=== PATIENT | female | born 1975 | race Caucasian/White ===

== ENCOUNTER 2023-08-09 06:31 | Day surgery (SDC) | payer MEDICAID, SELFPAY ==
[2023-08-04 12:35] VITALS: BMI 42.8
[2023-08-09] VITALS (7 sets, daily range): BP systolic 107–155; BP diastolic 57–79; PULSE 68–83; RESP 10–18; TEMP 36.7–36.8; O2SAT 92–97
--- NOTE | 2023-08-09 08:54 | HO.ANESPROP2 ---
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 If so, by whom?: No Are you DNR?: No Advance Directives: No Advance Directives Information Provided: Yes Advance Directives on File: No Recently lost weight without trying: No Nutrition Risks: No Nutritional Risk Patient : No FDLMP: 07/14/2023 : No Poor oral hygiene: No Meds Allergies Allergy/AdvReac Type Severity Reaction Status Date / Time doxycycline Allergy Severe Anaphylaxis Verified 08/09/23 07:03 gabapentin AdvReac Severe Nightmares Verified 08/09/23 07:03 Active Medications: Current Medications Lactated Ringer's (Lr) 1,000 mls @ 80 mls/hr IVCONT .[id number] [facility] Last Admin: 08/09/23 08:17 Dose: 80 mls/hr Home Medications Medication Instructions Recorded Confirmed Last Taken Type albuterol sulfate 90 mcg/actuation 2 puff inhalation Q4-6H PRN 08/04/23 08/04/23 Unknown History aerosol inhaler (ProAir HFA) Shortness Of Breath Or Wheezing lisinopril 20 mg tablet 20 mg PO DAILY 08/04/23 08/04/23 08/09/23 History methadone 5 mg/5 mL oral solution 29 mg PO DAILY 08/04/23 08/04/23 08/09/23 History Exam Exam Date and Time: August 09, 2023 0854 Height,Weight and Vital Signs: Height 5 ft 7 in Weight 123.831 kg Last Vital Signs Temp 98.1 F 08/09/23 07:56 Pulse 69 08/09/23 07:56 Resp 18 08/09/23 07:56 BP 155/79 H 08/09/23 07:56 Pulse Ox 97 08/09/23 07:56 O2 Del Method Room Air 08/09/23 07:56 Pertinent Lab Results Pertinent Lab Results: Laboratory Tests 08/09/23 06:45 Urine Test NEGATIVE Airway Mallampati Class: III TM Dist: <=3cm Neck ROM: Limited Heart: rrr Lungs: cta Assessment and Plan Final Anesthetic Review Family History of Problems with Anesthesia: No History of Problems with Anesthesia: No NPO: Yes ASA Class: III Final Preanesthetic Review: No Changes in Pt Med Stat, Meds/Allgs Chart Reviewed, Consent Obtained/Reviewed and Anes Risks/Benef Reviewed Patient Risk: Intermediate Procedure Risk: Low Anesthetic Plan Anesthetic Plan: GA and Agree w/ Assess. and Plan Disposition: Standard PACU
--- NOTE | 2023-08-09 13:55 | HO.OPHTHAL ---
Ophthalmology Operative Note Date of Service: 08/09/23 Narrative: Diagnosis exotropia And right hypertropia. Procedures 1. Resection of both medial rectus 5 mm 2. Recession of right superior rectus [address] Briones. Anesthesia general. Complications none. The patient was brought to the operating room placed under general anesthesia. The eyes were prepped and draped in the usual sterile ophthalmic fashion. A lid speculum was placed in the right eye and incisions made at bare sclera in the infero nasal fornix. The medial rectus muscle was hooked and dissected free of its overlying fascial attachments. A Nilson muscle clamp was applied and a 5 mm resection was marked off with cautery. The resection point was secured with a double-armed Vicryl suture and the distal muscle resected. The resection point was drawn forward to the original insertion using the Vicryl suture. Conjunctiva was closed with interrupted Vicryl sutures. An incision was then made down to bare sclera in the superior temporal fornix. The superior rectus muscle was hooked and secured with a double-armed Vicryl suture. It was reattached to a position 1 mm behind the original insertion. Conjunctiva was closed with interrupted Vicryl sutures. An identical procedure was performed on the left eye with the exception that only the medial rectus was operated on. The patient was then awoken from general anesthesia and discharged to postoperative recovery in good condition.
== END 2023-08-09 11:41 | disposition home or self-care (01) ==
PROVIDERS: Visit Provider Ophthalmology
PROC: (CPT 67311; principal; 2023-08-09 14:10)
DX: H50.15 Alternating exotropia (principal); H50.21 Vertical strabismus, right eye; I10 Essential (primary) hypertension; E78.00 Pure hypercholesterolemia, unspecified; J44.9 Chronic obstructive pulmonary disease, unspecified; G47.33 Obstructive sleep apnea (adult) (pediatric); G62.9 Polyneuropathy, unspecified; F11.90 Opioid use, unspecified, uncomplicated; Z79.899 Other long term (current) drug therapy; Z88.1 Allergy status to other antibiotic agents; Z88.8 Allergy status to other drugs, medicaments and biological substances; Z98.890 Other specified postprocedural states; Z87.891 Personal history of nicotine dependence
CPT/HCPCS: 67311; 67314; 81025; J0131; J1100; J1885; J2405; J3010